=== PATIENT | male | born 1970 ===

== ENCOUNTER 2019-01-02 15:20 | Inpatient (IN) | payer OTHER ==
[~2019-01-02 15:20] MED LIST: ISOVUE-370 76%-LOCM 1 ML ONE
[2019-01-02] MEDS ORDERED: Adacel (T-DAP) 0.5 ML SYRINGE ONE (15:29)
[2019-01-02] MEDS ORDERED: Fentanyl 100 MCG/2 ML VIAL ONE (15:32)
--- NOTE | 2019-01-02 15:42 | RAD ---
EXAM: Chest one view: HISTORY: Injury from a fall, trauma COMPARISON: None FINDINGS: Heart size: Within normal limits. Lungs: Clear of acute process. No evidence for pneumonia, pleural effusion, acute edema, or pneumothorax, or other significant acute process. IMPRESSION: No significant acute intrathoracic disease.
--- NOTE | 2019-01-02 15:43 | RAD ---
Exam: AP pelvis one view: HISTORY: Injury from a fall COMPARISON: None FINDINGS: No evidence for fracture, dislocation, or other significant acute osseous abnormality. IMPRESSION: No significant acute process.
--- NOTE | 2019-01-02 15:59 | CT ---
CT Cervical Spine WO Con Indication: History of fall 20feet from gymnasium roof with neck pain; level 2 trauma COMPARISON: None. FINDINGS: Acute fracture/subluxation: None. Spinal alignment: No acute malalignment. Craniocervical junction: Within normal limits. Vertebral body heights: Maintained. Cervical spine degenerative change: There is multilevel disc degenerative disease most pronounced at C5-6, C6-7 and C7-T1. 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 Lung apices: Clear. IMPRESSION: 1. No acute fracture or subluxation. 2. Mild to moderate spondylosis of the cervical spine with ossification of posterior longitudinal lig ament at C2-C3 inducing mild to moderate osseous central canal narrowing. 3. Findings called to Dr. Blank at 3:55 PM on January 02, 2019.
--- NOTE | 2019-01-02 16:04 | CT ---
EXAM: Brain CTWithout contrast: HISTORY: Injury from trauma COMPARISON: None FINDINGS: Soft tissue swelling over the left cheek and infraorbital region. No focal mass or midline shift. No intra or extra-axial hemorrhage. Sinus mucosal disease including the ethmoid and maxillary sinuses. The mastoids are clear. IMPRESSION: No mass or bleed or other significant acute intracranial process. Soft tissue swelling over the left cheek and infraorbital region. Sinus mucosal disease. Findings discussed at 4:00 PM with the emergency room.
--- NOTE | 2019-01-02 16:15 | CT ---
CT OF THE CHEST, ABDOMEN AND PELVIS WITH IV CONTRAST INDICATION: Fall 20 feet from the roof of the gymnasium COMPARISON: None. FINDINGS: CHEST: Lungs:There is a bibasilar atelectasis. No pleural effusion or pneumothorax is demonstrated. There is a 6 mm pulmonary nodule within the left upper lobe. Heart and great vessels:No acute traumatic injury seen. Pleural space: No pneumothorax or effusion. Additional findings: ABDOMEN: Liver:Normal appearing. Spleen:Normal appearing. Pancreas:Normal appearing. Adrenal Glands:Normal appearing. Kidneys:There are tiny hypodensity involving the right and left kidney, difficult characterize due to their size but statistically likely reflective of small cysts. Aorta:Normal appearing. Additional findings: No free fluid or free air. Pelvis: Bowel:Normal appearing. Bladder:Normal appearing. Reproductive structures:Normal appearing. Rectum and perirectal soft tissues:Normal appearing. Additional findings: No free fluid or free air. Osseous structures: No acute osseous abnormality. There is scattered degenerative and osteoarthritic changes. IMPRESSION: 1. No acute traumatic injury seen involving the chest, abdomen or pelvis. 2. 6 mm left upper lobe pulmonary nodule. Recommend a follow-up CT evaluation in 3 months to document stability. 3. Tiny hypodensities within both kidneys are difficult characterize due to their size but statistica lly likely reflective of simple cysts. 4. Findings called to Dr. Blank at 4:10 PM on January 02, 2019
--- NOTE | 2019-01-02 16:42 | RAD ---
Exam: Right femur 2 views: HISTORY: Injury from trauma FINDINGS: There is a displaced irregular probably comminuted fracture through the midportion of the patella wit h superficial soft tissue swelling and joint effusion. The femur appears intact. IMPRESSION: Irregular displaced patellar fracture with joint effusion.
--- NOTE | 2019-01-02 16:43 | RAD ---
Exam: Left femur 2 views: HISTORY: Injury from trauma COMPARISON: None FINDINGS: No evidence for fracture, dislocation, or other significant acute osseous abnormality. IMPRESSION: No significant acute process.
--- NOTE | 2019-01-02 16:44 | RAD ---
Exam: Right tibia and fibula 2 views: HISTORY: Injury from trauma COMPARISON: None FINDINGS: No evidence for fracture, dislocation, or other significant acute osseous abnormality. IMPRESSION: No significant acute process.
--- NOTE | 2019-01-02 16:45 | RAD ---
EXAM: Left tibia and fibula 2 views: HISTORY: Injury from trauma COMPARISON: None FINDINGS: Arthrosis changes of the knee joint. No acute fracture or dislocation or other significant acute osseous abnormality. IMPRESSION: No significant acute process.
--- NOTE | 2019-01-02 16:46 | RAD ---
EXAM: Left foot 3 views: HISTORY: Injury from trauma COMPARISON: None FINDINGS: Arthrosis changes particularly of the first metatarsal phalangeal joint No acute fracture or dislocation or other significant acute osseous abnormality. IMPRESSION: No significant acute process.
--- NOTE | 2019-01-02 16:46 | RAD ---
EXAM: Right foot 3 views: HISTORY: Injury from trauma COMPARISON: None FINDINGS: Osteoarthrosis changes particularly of the first metatarsophalangeal joint. No acute fracture or dislocation or other significant acute osseous abnormality. IMPRESSION: No significant acute process.
--- NOTE | 2019-01-02 16:47 | RAD ---
EXAM: Left forearm 2 views: HISTORY: Injury from trauma COMPARISON: None FINDINGS: Arthrosis changes of the wrist and elbow joints. No acute fracture or dislocation or other significant acute osseous abnormality. IMPRESSION: No significant acute process.
[2019-01-02] MEDS ORDERED: Ondansetron PF 4 MG/2 ML Vial IVP PRN (19:24)
[2019-01-02] MEDS ORDERED: Dextrose 50% Abboject 50 ML SYRINGE SLOW IVP PRN (19:24)
[2019-01-02] MEDS ORDERED: hydrALAZINE 20 MG/ML VIAL SLOW IVP PRN (19:24)
[2019-01-02] MEDS ORDERED: Dextrose 5% in Water 1,000 ML IV PRN (19:24)
[2019-01-02] MEDS ORDERED: Promethazine HCl 25 MG/ML VIAL IM PRN (19:24)
[2019-01-02] MEDS ORDERED: traMADol HCl 50 MG TAB PO PRN ×2 (19:32)
[2019-01-02 19:40] LABS: #Eosinphils 0.1 thou/uL (0.0-0.7); #Lymphocytes 1.7 thou/uL (1.20-3.40); #Monocytes 0.8 thou/uL (0.11-0.59); #Neutrophils 8.6 thou/uL (1.40-6.50); %Basophils 0.2 % (0.0-1.0); %Eosinophils 0.6 % (0.0-10.0); %Lymphocytes 15.3 % (21.0-51.0); %Neutrophils 76.9 % (42.0-75.0); Hemoglobin 14.3 g/dL (14.0-18.0); Mean Corpuscular HGB CONC 35.2 g/dL (32.0-36.0); Mean Corpuscular Hemoglobin 30.3 pg (27.0-31.0); Mean Corpuscular Volume 86.1 fL (78.0-98.0); Platelet Count 176 thou/uL (130-400); RBC Distribution Width 11.4 % (11.5-14.5); Red Blood Cell (RBC) Count 4.73 mill/uL (4.70-6.10); White Blood Cell (WBC) Count 11.2 thou/uL (4.8-10.8)
[2019-01-02 19:46] LABS: PTT 25.8 SEC (22.9-36.1)
[2019-01-02 19:59] LABS: ALT (SGPT) 30 U/L (8-55); AST (SGOT) 23 U/L (5-34); Albumin 4.4 g/dL (3.5-5.0); Alkaline Phosphatase 96 U/L (40-150); Anion Gap 14 mmol/L (10-20); BUN (Urea Nitrogen) 12 mg/dL (8.9-20.6); Calc. Creatinine Clearance 0 mL/min (70-130); Calcium 9.1 mg/dL (7.8-10.44); Carbon Dioxide 21 mmol/L (22-29); Chloride 107 mmol/L (98-107); Estimated GFR-MDRD 87; Globulin 2.6 g/dL (2.4-3.5); Glucose 115 mg/dL (70-105); Potassium 3.2 mmol/L (3.5-5.1); Sodium 139 mmol/L (136-145)
[2019-01-02] MEDS ORDERED: Morphine 4 MG/ML VIAL ONE (20:37)
[2019-01-02] MEDS ORDERED: Potassium Chloride 20 MEQ TAB ONE (21:05)
[2019-01-02] MEDS: Acetaminophen 1,000 MG in Premix Bag 1 BAG IVPB SCH (21:57)
[2019-01-02] MEDS: Sodium Chloride 0.9% 1,000 ML IV SCH ×2 (21:57→23:06)
[2019-01-02] MEDS: Bacitracin Zinc Ointment 30 gm TUBE TOP SCH (21:58)
[2019-01-02] MEDS: Famotidine/PF 20 mg/2ml Vial SLOW IVP SCH (21:58)
[2019-01-02] MEDS: Senokot S 8.6-50 MG TAB PO SCH (21:58)
[2019-01-02] MEDS: Morphine 4 MG/ML VIAL SLOW IVP PRN (21:58)
[2019-01-02] MEDS: Ibuprofen 800 MG TAB PO SCH (21:58)
[2019-01-02 22:14] VITALS: BMI 26.6
[2019-01-02 22:32] LABS: Phosphorus 2.2 mg/dL (2.3-4.7)
[2019-01-02] MEDS ORDERED: Potassium Phosphate 30 MMOL in Sodium Chloride 0.9% 500 ML IVPB SCH (22:45)
[2019-01-02] MEDS ORDERED: Acetaminophen 500 MG TAB PO SCH (23:59)
--- NOTE | 2019-01-03 00:09 | PRG ---
DATE OF SERVICE: 01/02/2019 SUBJECTIVE: The patient was seen today during the evening rounds. He had recently arrived from the emergency department. He is status post mechanical fall from 20 feet with a right patellar fracture. The patient reported generalized body pain in the emergency department and had received IV pain medications on the time of my evaluation. The patient reported pain was improving. He also had some significant C-spine tenderness at that time and it was elected to keep the C-collar in place. He will receive an MRI tomorrow. He is also to go to the OR with Dr. Veliz for fixation of the patellar fracture. At the time of my evaluation, the patient had no complaints and no questions. OBJECTIVE: VITAL SIGNS: The patient is afebrile, hemodynamically stable. Saturating 97% on room air. GENERAL: Well-appearing middle-aged male, lying in bed with no signs of acute distress. C-collar is in place. PULMONARY: Equal chest rise and fall. Clear breath sounds bilaterally. No signs of acute respiratory distress. However, he has some chest wall tenderness. CARDIAC: Regular rate and rhythm with no murmurs, gallops, or rubs. GI: Abdomen is soft, nontender, nondistended. EXTREMITIES: Lower extremity abrasions. No gross deformities noted otherwise. NEUROLOGIC: GCS is 15. Gross motor and sensation are intact. ASSESSMENT: 1. Status post mechanical fall from 20 feet. 2. Right patellar fracture. 3. Lower extremity abrasions. 4. Left upper lobe pulmonary nodule discovered on CT scan in the emergency department. 5. Hypokalemia. PLAN: The patient will receive potassium phosphate overnight. He also has a persistent C-spine tenderness. An MRI will be completed tomorrow to rule out ligamentous injury. He did receive tetanus and Ancef in the emergency department. We will discuss the left upper lobe pulmonary nodule with the patient and advise him to seek followup imaging as recommended by the radiologist. We will discuss this further with him, especially after his operative fixations and when he is closer to discharge. We will continue his current pain regimen. He is n.p.o. after midnight with normal saline at 120 an hour. The patient will likely be able to be discharged home. Job ID: [id number]
[2019-01-03] MEDS: Morphine 4 MG/ML VIAL SLOW IVP PRN ×4 (00:13→16:20)
[2019-01-03] MEDS ORDERED: CEFAZOLIN 2 GM in Premix Bag 1 BAG IVPB SCH (00:15)
--- NOTE | 2019-01-03 01:15 | HP ---
ATTENDING: Dr. Frank CONSULTANTS: Dr. Veliz, Orthopedic surgery. This was a level 2 trauma activation. HISTORY OF PRESENT ILLNESS: This is a 48-year-old gentleman who was at work on a ladder. The patient is a grounds/maintenance specialist. The patient reports he was up about 18 to 20 feet on the ladder when the ladder tipped and he fell, landing on pavement. The patient denies any chest pain, shortness of breath, or dizziness prior to the ladder falling. The patient denies any loss of consciousness. The patient states when he landed, he landed mainly on bilateral knees. The patient does report hitting the left side of his face. The patient denies any loss of consciousness. The patient states that his teeth do fit together and just complains of pain to the right cheek area. The patient arrived via air ambulance to the emergency room, where he was evaluated and found to have a right patellar fracture. The patient's head, neck , chest, abdomen, and pelvis CT were all negative. The patient is mainly Thai speaking only, the patient's son is at bedside to translate. The patient does not see a physician, but denies any medical history. The patient complains of bilateral knee pain and abrasions. The patient also complains of left-sided chest pain with deep breath. PAST MEDICAL HISTORY: Eye injury. 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 SOCIAL HISTORY: Denies smoking history, denies alcohol use, denies illicit drug use, the patient works as a grounds/maintenance specialist. MEDICATIONS: Denies taking any medications. ALLERGIES: NO KNOWN DRUG ALLERGIES. REVIEW OF SYSTEMS: A 10-point review of systems is negative unless otherwise indicated in the above HPI. OBJECTIVE: VITAL SIGNS: Temperature 98.5, blood pressure 120/72, SpO2 99% on room air, heart rate 73, and respirations 18. HEENT: Head is atraumatic, normocephalic. The patient does have a contusion and abrasion to the left cheek area, teeth are well aligned, mucous membranes are moist, trachea is midline, no JVD, the patient with cervical spine tenderness, pupils are equal, the patient does have a prosthetic lens noted to the left eye. RESPIRATORY: Chest is symmetrical with respirations, no wheezing, rales, or rhonchi, bilateral breath sounds clear, chest tender to palpation, no crepitus, worse pain with palpation on the left side of upper chest, no obvious deformities. HEART: Regular rate and regular rhythm, no murmurs, no pedal edema. ABDOMEN: Soft, active bowel sounds, tenderness to palpation, no peritoneal signs, no obvious injury. MUSCULOSKELETAL: Strength 5/5, normal sensation in all extremities, left lower extremity with abrasions to the knee and anterior lower leg. Right knee with pain and swelling to right great toe, left upper forearm with abrasion and swelling, no obvious deformity, right upper extremity with normal range of motion. No obvious injuries. NEUROLOGIC: No focal deficits, cranial nerves intact, GCS 15. LABORATORY DATA: Pending. DIAGNOSTIC STUDIES: Cervical spine CT, impression, no acute fracture subluxation, [id number] spondylosis of the cervical spine with ossification of posterior longitudinal ligament at the C2-C3 including [id number] osseous central canal narrowing. Brain CT, no mass or bleed or other significant acute intracranial process, soft tissue swelling over the left cheek and infraorbital region. Sinus mucosal disease. Chest x-ray, no significant acute intrathoracic disease. Chest, abdomen, pelvis CT, there is bibasilar atelectasis. No pleural effusion or pneumothorax is demonstrated. There is a 6 mm pulmonary nodule within the left upper lobe. Heart and great vessels, no acute traumatic injury seen. No pneumothorax or effusion. Abdomen, no free fluid or free air. Pelvis, no free fluid or free air. Tiny hypodensities within both kidneys are difficult to characterize due to their size, but statistically likely reflective of simple cyst. Pelvis x-ray, no significant acute process. Femur x-ray, right irregular displaced patellar fracture with joint effusion. Left tibia and fibula x-ray, no acute fracture, dislocation, or other significant acute osseous abnormality. Left femur x-ray, no evidence of fracture, dislocation, or significant acute osseous abnormality. Bilateral foot x-rays, no significant acute process. Left forearm x-ray, no significant acute process. Right tib-fib x-ray, no significant acute process. IMPRESSION: 1. Status post fall approximately 18 to 20 feet from a ladder. 2. Right displaced patellar fracture with joint effusion. 3. Acute traumatic pain. 4. Facial contusion. 5. Multiple extremity abrasions. 6. Neck pain. PLAN: We will admit the patient to the surgical floor. The patient will be n.p.o. after midnight for plans for surgery with Dr. Veliz for right patellar fracture tomorrow morning. We will place the patient on maintenance fluids. We will obtain an EKG. We will place the patient in an [place] collar as he is complaining of cervical spine tenderness and C-spine x-ray shows posterior longitudinal ligament at the C2-C3 inducing [id number] osseous central canal narrowing. We will obtain an MRI of the neck to make sure the patient does not have any ligamentous injuries. We will place the patient on pain, bowel regimen, GI prophylaxis. We will place the patient on mechanical DVT prophylaxis. We will place the patient on chemical DVT prophylaxis postop. PT and OT consult will be placed to evaluate and treat postop. We will also give the patient Ancef prophylactically. The plan will be discussed with the attending after this dictation. Job ID: [id number] MTDD
[2019-01-03] MEDS: Ibuprofen 800 MG TAB PO SCH ×2 (03:27→14:37)
[2019-01-03 04:23] LABS: Amphetamine Not Detected (NotDetected); Barbiturates Screen Not Detected (NotDetected); Benzodiazepine Screen Not Detected (NotDetected); Cocaine Metabolite Screen Not Detected (NotDetected); Medtox Control Line Valid? VALID (VALID); Medtox Reader # READER 4; Methadone Not Detected (NotDetected); Methamphetamine Not Detected (NotDetected); Opiate Screen Detected (NotDetected); Oxycodone Screen Not Detected (NotDetected); Phencyclidine (PCP) Not Detected (NotDetected); THC/Cannabinoid Screen Not Detected (NotDetected); Tricyclic Screen Not Detected (NotDetected)
[2019-01-03 05:04] LABS: #Eosinphils 0.1 thou/uL (0.0-0.7); #Monocytes 1.1 thou/uL (0.11-0.59); #Neutrophils 7.4 thou/uL (1.40-6.50); %Basophils 0.1 % (0.0-1.0); %Eosinophils 0.8 % (0.0-10.0); %Lymphocytes 18.9 % (21.0-51.0); %Monocytes 10.1 % (0.0-10.0); %Neutrophils 70.1 % (42.0-75.0); Hemoglobin 13.5 g/dL (14.0-18.0); Mean Corpuscular HGB CONC 35.1 g/dL (32.0-36.0); Mean Corpuscular Hemoglobin 30.9 pg (27.0-31.0); Mean Platelet Volume 8.6 fL (7.4-10.4); Platelet Count 172 thou/uL (130-400); RBC Distribution Width 11.7 % (11.5-14.5); Red Blood Cell (RBC) Count 4.37 mill/uL (4.70-6.10); White Blood Cell (WBC) Count 10.6 thou/uL (4.8-10.8)
[2019-01-03] MEDS: Acetaminophen 1,000 MG in Premix Bag 1 BAG IVPB SCH (05:53)
[2019-01-03 06:16] LABS: Anion Gap 11 mmol/L (10-20); BUN (Urea Nitrogen) 10 mg/dL (8.9-20.6); Calc. Creatinine Clearance 123 mL/min (70-130); Carbon Dioxide 23 mmol/L (22-29); Chloride 109 mmol/L (98-107); Estimated GFR-MDRD Greater than 90; Glucose 115 mg/dL (70-105); Magnesium 2.1 mg/dL (1.6-2.6); Phosphorus 4.5 mg/dL (2.3-4.7); Sodium 139 mmol/L (136-145)
[2019-01-03] MEDS ORDERED: Fentanyl 100 MCG/2 ML VIAL ONE ×4 (07:46→10:37)
[2019-01-03] MEDS: Senokot S 8.6-50 MG TAB PO SCH ×2 (08:19→20:24)
[2019-01-03] MEDS: Famotidine/PF 20 mg/2ml Vial SLOW IVP SCH ×2 (08:19→20:27)
[2019-01-03] MEDS: Polyethylene Glycol 3350 17 GM Packet PO SCH (08:19)
[2019-01-03] MEDS ORDERED: Neomycin-Polymyxin 1 ML AMP ONE (08:29)
[2019-01-03] MEDS ORDERED: PROPOFOL 200 MG/20 ML VIAL ONE (08:38)
[2019-01-03] MEDS ORDERED: Ketorolac Tromethamine 30 MG/ML VIAL ONE (08:38)
[2019-01-03] MEDS ORDERED: Lidocaine 1% PF 5 ML VIAL ONE (08:38)
[2019-01-03] MEDS ORDERED: Dexamethasone 20 MG/5 ML VIAL ONE (08:38)
[2019-01-03] MEDS ORDERED: Ondansetron PF 4 MG/2 ML Vial ONE (08:38)
[2019-01-03] MEDS ORDERED: HYDROcodone/Acetaminophen 7.5/325 mg Tablet PO PRN (08:40)
[2019-01-03] MEDS ORDERED: Bupivacaine HCl 0.5%/Epinephrine 1:200,000/PF 30 ml Vial ONE (10:07)
--- NOTE | 2019-01-03 10:23 | OP ---
DATE OF PROCEDURE: 01/03/2019 INDICATIONS FOR SURGERY: The patient is a 48-year-old male, who fell approximately 20 feet off a roof and fractured his right patella. The patient is taken to the operating room for open reduction and internal fixation. PREOPERATIVE DIAGNOSIS: Comminuted fracture of the right patella. POSTOPERATIVE DIAGNOSIS: Comminuted fracture of the right patella.. PROCEDURE PERFORMED: Open reduction and internal fixation of the right patella. ANESTHESIA: General. DESCRIPTION OF PROCEDURE: The patient was given preoperative IV antibiotics, taken to the operating room, placed in the supine position. Satisfactory general anesthesia was performed. The right lower extremity was sterilely prepped and draped in usual fashion. After exsanguination, tourniquet was raised to 250 mmHg. A longitudinal incision was made over the anterior aspect of the knee over the patella. Sharp dissection was made down to the periosteum over the anterior aspect of the patella. The patella was fractured transversely, and then, also the distal pole was also fractured longitudinally. The fractures were manipulated, reduced, held reduced with bone clamps, and then, internally fixed using two 4.5 cannulated screws from proximal to distal and then supplemented with 18-gauge wire that was brought down the cannulated screws and around the medial and then lateral aspect of the patella. The wire was then tightened and then cut, and the cut portion was then bent down into the soft tissue to avoid any pain from the wire. This was all performed under fluoroscopic visualization using the C-arm. This showed good alignment of the fractures and proper placement of the screws and the wire. The knee was placed through a range of motion and is very stable. Knee joint was then copiously irrigated with antibiotic solution, it was closed using #1 Vicryl for the deeper tissue, and the skin was closed with skin srini. Sterile dressing was applied. The patient was placed in a knee immobilizer. The tourniquet was released. The patient was awakened, extubated, and transferred to recovery room in stable condition. ESTIMATED BLOOD LOSS: None. COMPLICATIONS: None. TOURNIQUET TIME: 52 minutes. Job ID: [id number]
--- NOTE | 2019-01-03 10:34 | RAD ---
Exam: Right knee 2 views: HISTORY: Fracture patella from injury for ORIF 2 portable fluoroscopic spot images demonstrate 2 internal fixation screws and wire stabilizing the p reviously noted patellar fracture with improvement in position and alignment. IMPRESSION: Improved position and alignment of the patellar fracture following ORIF.
[2019-01-03] MEDS ORDERED: Morphine 4 MG/ML VIAL ONE (10:51)
[2019-01-03] MEDS ORDERED: Morphine 2 MG/ML SYRINGE ONE ×2 (11:24→11:38)
--- NOTE | 2019-01-03 13:21 | MRI ---
Cervical spine MRI without contrast: 01/03/2019 COMPARISON: None HISTORY: Fall, spine tenderness TECHNIQUE: Multiplanar multisequence MR imaging of the cervical spine is provided without contrast FINDINGS: The sagittal STIR imaging is slightly limited on the basis of motion artifact. There is no discrete focal area of osseous marrow edema. There is polypoid mucosal thickening involving the alveolar recess of bilateral maxillary sinuses. C2-3: There is a focal area of calcification of the posterior longitudinal ligament causing a mild de gree of central canal stenosis with effacement of the ventral thecal sac. No significant neural foraminal stenosis on either side C3-4: No significant central canal or neural foraminal stenosis. Mild bilateral facet hypertrophy, ri ght greater than left. C4-5: There is disc desiccation and disc space narrowing. There is mild bilateral facet hypertrophy. Mild central canal stenosis and mild bilateral neural foraminal stenosis. C5-6: There is disc space narrowing and minimal disc bulge with a small central annular tear and mild central canal stenosis. Mild neural foraminal stenosis noted, left greater than right. C6-7: There is disc desiccation and disc space narrowing with minimal disc bulge. No significant neur al foraminal stenosis. Mild central canal stenosis. C7-T1: Mild disc bulge. No central canal or neural foraminal stenosis. No focal area of abnormal signal intensity identified within the cervical cord. IMPRESSION: A degenerative change as detailed above. No acute abnormality is evident.
[2019-01-03] MEDS: Bacitracin Zinc Ointment 30 gm TUBE TOP SCH (13:35)
[2019-01-03] MEDS: Ketorolac Tromethamine 30 MG/ML VIAL IVP SCH ×2 (14:37→18:33)
[2019-01-03] MEDS: Gabapentin 300 MG CAP PO SCH ×2 (14:38→20:23)
[2019-01-03] MEDS: HYDROcodone/Acetaminophen 7.5/325 mg Tablet PO PRN ×2 (14:38→20:25)
[2019-01-03] MEDS: Sodium Chloride 0.9% 1,000 ML IV SCH (16:10)
[2019-01-03] MEDS ORDERED: Acetaminophen 500 MG TAB PO SCH ×2 (18:00→23:59)
--- NOTE | 2019-01-03 19:50 | PRG ---
DATE OF SERVICE: 01/03/2019 SUBJECTIVE: This is a 48-year-old gentleman, who is postop day 0, open reduction and internal fixation of the right patella. The patient had a fall from a ladder approximately 18 to 20 feet. The patient is currently awake, alert, and reports that his pain is moderately controlled at this time. Rates it about 3. The patient is tolerating a diet and voices no concerns. The patient's son is at the bedside to translate. OBJECTIVE: VITAL SIGNS: Temperature 98.0, pulse 66, respirations 18, SpO2 of 98% on room air, blood pressure 124/78. GENERAL: The patient is awake, alert, no distress, sitting up in hospital bed. RESPIRATORY: Equal chest rise and fall, no respiratory distress. HEART: Regular rate regular rhythm. EXTREMITIES: Moves all extremities, normal distal pulses, right lower extremity with Abhinav bandage in a knee immobilizer in place. NEUROLOGIC: No focal deficits. LABORATORY DATA: WBC 10.6, RBC 4.37, hemoglobin 13.5, hematocrit 38.5, platelets 172. Sodium 139, potassium 4.0, chloride 109, BUN 10, estimated GFR greater than 90, glucose 115, calcium 9.0, phosphorus 4.5, magnesium 2.0. IMPRESSION: 1. Status post fall, approximately 18 to 20 feet from a ladder. 2. Postop day #0, open reduction and internal fixation of right patellar fracture. 3. Acute traumatic pain. 4. Facial contusion. 5. Multiple extremity abrasions. 6. Neck pain, resolved. PLAN: Continue comfort care. We will place the patient on chemical DVT prophylaxis. We will increase the patient's diet to regular diet and stop maintenance fluids. The patient's cervical MRI was negative and the patient denies any neck pains. We will remove [place] collar at this time. The patient states that once he is ready, he would like to go home to [place] and do inpatient rehab. The plan was discussed with the patient and family who agree. We will continue to have Physical Therapy and Occupational work with the patient. Job ID: [id number] MTDD
[2019-01-03] MEDS: Aspirin 81 mg Enteric Coated Tablet PO SCH (20:23)
--- NOTE | 2019-01-03 23:31 | PRG ---
DATE OF SERVICE: 01/03/2019 SUBJECTIVE: The patient was seen today during the evening rounds. He is postoperative day #0 status post ORIF of the right patella. At the time of my evaluation, the patient was resting comfortably and easily arousable. He reported his pain is well controlled and he had no questions or concerns at that time. He also received an MRI today of his C-spine, which demonstrated no acute injury. OBJECTIVE: VITAL SIGNS: The patient is afebrile. Hemodynamically stable, saturating 95% on room air. GENERAL: Well-appearing middle-aged male, sitting up in bed with no signs of acute distress. PULMONARY: Equal chest rise and fall. No signs of acute respiratory distress. EXTREMITIES: 2+ pulses in all extremities. Gross motor and sensation are intact. Knee immobilizer to right lower extremity. NEUROLOGIC: GCS is 15. ASSESSMENT: 1. Status post fall from 20 feet. 2. Right patellar fracture, status post repair. 3. Lower extremity abrasions. 4. Incidental left upper lobe pulmonary nodule. 5. Persistent C-spine pain, resolved. PLAN: C-collar was removed today. Continue pain control with scheduled Tylenol and tramadol. A short course of Toradol was ordered by Dr. Veliz. We will continue that for now. We will discontinue his p.o. ibuprofen in the meantime. He will be started on aspirin for DVT prophylaxis. Continue with regular diet and discontinue IV fluids. The patient to work with Physical and Occupational Therapy starting tomorrow. He would like to be discharged home as he lives in [place], he would like to do outpatient therapy there. Job ID: [id number]
[2019-01-03] MEDS ORDERED: Acetaminophen 325 MG TAB PO SCH (23:59)
[2019-01-04] MEDS: Bacitracin Zinc Ointment 30 gm TUBE TOP SCH ×3 (00:30→21:18)
[2019-01-04] MEDS: traMADol HCl 50 MG TAB PO SCH ×4 (00:33→17:50)
[2019-01-04] MEDS: Acetaminophen 500 MG TAB PO SCH ×4 (00:35→17:50)
[2019-01-04] MEDS: Ketorolac Tromethamine 30 MG/ML VIAL IVP SCH ×3 (00:36→12:24)
[2019-01-04 04:39] LABS: #Monocytes 1.1 thou/uL (0.11-0.59); #Neutrophils 9.2 thou/uL (1.40-6.50); %Basophils 0.2 % (0.0-1.0); %Eosinophils 0.2 % (0.0-10.0); %Monocytes 8.7 % (0.0-10.0); Hemoglobin 12.8 g/dL (14.0-18.0); Mean Corpuscular Hemoglobin 30.7 pg (27.0-31.0); Mean Corpuscular Volume 87.7 fL (78.0-98.0); Mean Platelet Volume 8.8 fL (7.4-10.4); Platelet Count 162 thou/uL (130-400); RBC Distribution Width 11.4 % (11.5-14.5); Red Blood Cell (RBC) Count 4.16 mill/uL (4.70-6.10); White Blood Cell (WBC) Count 12.2 thou/uL (4.8-10.8)
[2019-01-04 04:56] LABS: Anion Gap 11 mmol/L (10-20); BUN (Urea Nitrogen) 14 mg/dL (8.9-20.6); Calc. Creatinine Clearance 123 mL/min (70-130); Calcium 8.8 mg/dL (7.8-10.44); Carbon Dioxide 26 mmol/L (22-29); Chloride 105 mmol/L (98-107); Estimated GFR-MDRD Greater than 90; Glucose 119 mg/dL (70-105); Magnesium 2.2 mg/dL (1.6-2.6); Phosphorus 3.8 mg/dL (2.3-4.7); Potassium 4.1 mmol/L (3.5-5.1); Sodium 138 mmol/L (136-145)
[2019-01-04] MEDS: Polyethylene Glycol 3350 17 GM Packet PO SCH (08:56)
[2019-01-04] MEDS: Aspirin 81 mg Enteric Coated Tablet PO SCH ×2 (08:57→21:10)
[2019-01-04] MEDS: Famotidine/PF 20 mg/2ml Vial SLOW IVP SCH ×2 (08:57→21:15)
[2019-01-04] MEDS: Gabapentin 300 MG CAP PO SCH ×3 (08:57→21:11)
[2019-01-04] MEDS: Senokot S 8.6-50 MG TAB PO SCH ×2 (08:57→21:11)
--- NOTE | 2019-01-04 12:14 | RAD ---
Exam: Left clavicle 2 views: HISTORY: Injury from a fall FINDINGS: Degenerative changes left A/C joint. No acute fracture or dislocation. IMPRESSION: A C joint arthrosis without acute clavicle fracture.
--- NOTE | 2019-01-04 12:14 | RAD ---
Exam: Left shoulder 3 views: HISTORY: Injury from a fall FINDINGS: Mild left A/C joint arthrosis. No evidence for acute fracture or dislocation. IMPRESSION: No acute fracture or dislocation.
--- NOTE | 2019-01-04 13:35 | PRG ---
DATE OF SERVICE: 01/04/2019 SUBJECTIVE: This is a 48-year-old gentleman, postop day #1, open reduction and internal fixation of the right patella. The patient is currently awake, alert, in no distress. The patient denies any pain at this time. The patient continues to tolerate a diet. The patient is awaiting for physical therapy to come and work with him this morning. The patient does complain of some left shoulder and clavicle pain. OBJECTIVE: VITAL SIGNS: Temperature 98.1, pulse 67, respirations 16, SpO2 of 96% on room air, blood pressure 130/78. GENERAL: The patient is awake, alert, in no distress, sitting up in bed. RESPIRATORY: Equal chest rise and fall, no distress. HEART: Regular rate, regular rhythm. EXTREMITIES: Moves all extremities. Normal range of motion, pain, tenderness to the left shoulder. No obvious deformity. Right lower extremity with Abhinav bandage and knee immobilizer in place. NEUROLOGIC: No focal deficit. LABORATORY DATA: WBC 12.2, RBC 4.16, hemoglobin 12.8, hematocrit 36.5. Sodium 138, potassium 4.1, chloride 105, carbon dioxide 26, anion gap 11, BUN 14, creatinine 0.80, estimated GFR less than 90, glucose 119, calcium 8.8, phosphorus 3.8, magnesium 2.2. DIAGNOSTICS: Left shoulder x-ray, no acute fracture or dislocation, mild left AC joint arthrosis. Left clavicle x-ray, no acute clavicle fracture. IMPRESSION: 1. Status post fall approximately 18 to 20 feet from a ladder. 2. Postoperative day #1 open reduction and internal fixation of right patellar fracture. 3. Acute traumatic pain. 4. Facial contusion. 5. Multiple extremity abrasions. PLAN: Continue comfort care. Continue chemical and DVT prophylaxis. We will have Physical and Occupational Therapy work with the patient. The plan was discussed with the attending who agrees. The plan was discussed with the patient who agrees. Job ID: [id number]
[2019-01-04] MEDS: Ibuprofen 800 MG TAB PO SCH (21:09)
--- NOTE | 2019-01-05 00:31 | PRG ---
DATE OF SERVICE: 01/04/2019 The patient was seen today during the evening rounds. He is postoperative day 1, status post ORIF of the right patella. He was resting comfortably and asleep at the time of my evaluation, with no signs of acute respiratory distress. He is afebrile and hemodynamically stable, saturating 96% on room air. 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 He will likely be able to be discharged tomorrow with outpatient physical therapy. We will continue current pain regimen and diet. Job ID: [id number]
[2019-01-05] MEDS: traMADol HCl 50 MG TAB PO SCH ×3 (00:40→10:59)
[2019-01-05] MEDS: Acetaminophen 500 MG TAB PO SCH ×3 (00:42→10:59)
[2019-01-05 05:54] LABS: Eosinophils 2 % (0-10); Hemoglobin 12.5 g/dL (14.0-18.0); Lymphocytes 27 % (21-51); MDiff Complete? YES; Mean Corpuscular HGB CONC 34.2 g/dL (32.0-36.0); Mean Corpuscular Hemoglobin 30.3 pg (27.0-31.0); Mean Corpuscular Volume 88.6 fL (78.0-98.0); Mean Platelet Volume 8.7 fL (7.4-10.4); Monocytes 7 % (0-10); Neutrophil 54 % (42-75); Platelet Count 161 thou/uL (130-400); RBC Distribution Width 11.4 % (11.5-14.5); Reactive Lymphocytes 10 % (0-10); Red Blood Cell (RBC) Count 4.13 mill/uL (4.70-6.10); White Blood Cell (WBC) Count 8.6 thou/uL (4.8-10.8)
[2019-01-05] MEDS: Ibuprofen 800 MG TAB PO SCH (05:56)
[2019-01-05] MEDS: Aspirin 81 mg Enteric Coated Tablet PO SCH (08:24)
[2019-01-05] MEDS: Famotidine/PF 20 mg/2ml Vial SLOW IVP SCH (08:24)
[2019-01-05] MEDS: Gabapentin 300 MG CAP PO SCH ×2 (08:24→16:58)
[2019-01-05] MEDS: Senokot S 8.6-50 MG TAB PO SCH (08:24)
[2019-01-05] MEDS: Polyethylene Glycol 3350 17 GM Packet PO SCH (08:25)
[2019-01-05] MEDS: Bacitracin Zinc Ointment 30 gm TUBE TOP SCH (08:25)
[2019-01-05] MEDS ORDERED: Cyclobenzaprine 10 MG TAB PO PRN (09:13)
[2019-01-05] MEDS ORDERED: Ibuprofen 800 MG TAB PO PRN (09:14)
[2019-01-05 16:15] VITALS: BP 125/75; TEMP 98.1
--- NOTE | 2019-01-05 17:49 | DIS ---
DATE OF ADMISSION: 01/02/2019 DATE OF DISCHARGE: 01/05/2019 ATTENDING: Carlito Frank MD DISCHARGE ATTENDING: Dr. Mayorga. CONSULTS: Dr. Veliz, Orthopedic Surgery. PROCEDURES: 1. 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 2. Brain CT, no mass or bleed or other significant acute intracranial process, soft tissue swelling over the left cheek and infraorbital region, sinus mucosal disease. 3. Chest x-ray, no significant acute intrathoracic disease. 4. Chest, abdomen, and pelvis CT, there is basilar atelectasis. No pleural effusion or pneumothorax is demonstrated. There is a 6 mm pulmonary nodule within the left upper lobe. Heart and great vessels, no acute traumatic injury seen. No pneumothorax or effusion. 5. Abdomen, no free fluid or free air. Pelvis, no free fluid or free air. Tiny hypodensities within both kidneys are difficult to characterize due to their size, but statistically likely reflective of a simple cyst. 6. Pelvis x-ray, no significant acute process. 7. Femur x-ray, right irregular displaced patellar fracture with joint effusion. 8. Left tibia and fibula x-ray, no acute fracture, dislocation, or other significant acute osseous abnormality. 9. Left femur x-ray, no evidence of fracture, dislocation, or significant acute osseous abnormality. 10. Bilateral foot x-rays, no significant acute process. 11. Left forearm x-ray, no significant acute process. 12. Right tib-fib x-ray, no significant acute process. 13. On 01/03/2019, right knee x-ray, impression, improved position and alignment of the patellar fracture following ORIF. 14. Cervical spine MRI on 01/03/2019, impression, degenerative changes, no acute abnormality is evident. 15. Clavicle x-ray on 01/04/2019, AC joint arthrosis without acute clavicle fracture on the left. 16. Left shoulder x-ray, impression, on 01/04/2019, no acute fracture or dislocation. 17. On 01/03/2019, open reduction and internal fixation of the right patella by Dr. Veliz. PRIMARY DIAGNOSES: 1. Status post fall approximately 18 to 20 feet from a ladder. 2. Right displaced patellar fracture with joint effusion. 3. Facial contusion. 4. Multiple extremity abrasions. 5. Acute traumatic pain. DISCHARGE MEDICATIONS: 1. Acetaminophen 1000 mg p.o. q.6 hours. 2. Aspirin 81 mg p.o. b.i.d. for 30 days. 3. Flexeril 10 mg p.o. 3 times a day as needed p.r.n. muscle spasms. 4. Gabapentin 300 mg p.o. 3 times a day as needed for pain. 5. Ibuprofen 800 mg p.o. q.8 hours as needed for pain. 6. Stool softener as needed for constipation. 7. Tramadol 50 mg 1 to 2 tablets q.6 hours as needed for pain #30. HISTORY OF PRESENT ILLNESS AND HOSPITAL COURSE: This is a 48-year-old gentleman who was at work on a ladder, the patient works as a hot tar roofer helper. The patient reports he was up about 18 to 20 feet on the ladder when the ladder tipped and caused him to fall, landing on the pavement. The patient denied any chest pain or shortness of breath or dizziness prior to the ladder falling. The patient denies any loss of consciousness. The patient states he landed mainly on bilateral knees. He does report hitting the left side of his face. The patient was found to have a right patellar fracture when he was evaluated in the emergency room. The patient continued to have some neck pain, and the patient was placed in an Dunbar collar. The patient continued to have moderate pain postop. Medications were adjusted. The patient was able to walk with physical therapy using crutches. On the day of discharge, the patient was examined by Dr. Mayorga. The patient's vital signs were stable on the day of discharge and exam was unremarkable including cardiopulmonary and GI exam. The patient was deemed stable for discharge home. DISPOSITION: Stable. DISCHARGE INSTRUCTIONS: 1. Location: Home. 2. Diet: Regular diet. 3. Activity: Weightbearing as tolerated on all extremities. 4. Followup: Follow up with Dr. Veliz next week. Please call for an appointment. No need to follow up with Trauma Services. Please call if you have any questions. Job ID: [id number]
== END 2019-01-05 17:52 | disposition home or self-care (01) | DRG 517 ==
LOC: ERS 15:20 → SURG B 19:24
PROVIDERS: ADMIT Specialist; ATTEND Specialist
PROC: 0QSD04Z Reposition Right Patella with Internal Fixation Device, Open Approach (ICD-10-PCS; principal; 2019-01-03)
DX: S82.001A Unspecified fracture of right patella, initial encounter for closed fracture (principal); M25.461 Effusion, right knee; M54.2 Cervicalgia; S00.83XA Contusion of other part of head, initial encounter; E87.6 Hypokalemia; S80.819A Abrasion, unspecified lower leg, initial encounter; W11.XXXA Fall on and from ladder, initial encounter; Y93.9 Activity, unspecified; Y92.009 Unspecified place in unspecified non-institutional (private) residence as the place of occurrence of the external cause
CPT/HCPCS: 36415; 70450; 71045; 71260; 72125; 72141; 72170; 74177; 76000; 80048; 80053; 80306; 80307; 83735; 84100; 85007; 85025; 85027; 85610; 85730; 86850; 86900; 86901; 90471; 90715; 93005; 96365; 96375; C1713; C1769; G0390; J0131; J0670; J0690; J1100; J1885; J2001; J2270; J2405; J2704; J3010; J7050; Q9966; S0028